=== PATIENT | male | born 1990 | race Native Hawaiian/Other Pacific Islander ===

== ENCOUNTER 2020-01-11 00:29 | Emergency (ER) | payer OTHER ==
[~2020-01-11] VITALS: Ht 167.6 cm; Wt 64.9 kg
[2020-01-11 01:32] LABS: PLATELET COUNT 524 K/uL (142-355)
[2020-01-11 01:33] LABS: POTASSIUM 3.9 mmol/L (3.6-5.2)
[2020-01-11 01:51] VITALS: BP 123/78; TEMP 98.4
== END 2020-01-11 01:51 | disposition home or self-care (01) ==
LOC: ED 00:29
PROVIDERS: Family Medicine
DX: R56.9 Unspecified convulsions (principal); F41.8 Other specified anxiety disorders; W01.198A Fall on same level from slipping, tripping and stumbling with subsequent striking against other object, initial encounter; Y92.89 Other specified places as the place of occurrence of the external cause
CPT/HCPCS: 80053; 85027; 99283